=== PATIENT | female | born 1990 | race Caucasian/White ===

== ENCOUNTER 2018-06-22 07:27 | Outpatient (CLI) | payer OTHER ==
[2018-06-22] MEDS ORDERED: ISOVUE-370 76%-LOCM 1 ML ONE (11:10)
--- NOTE | 2018-06-22 11:38 | CT ---
CT OF PELVIS: DATE: 06/22/18. COMPARISON: None. HISTORY: Evaluate for lymphadenopathy, history of localized enlarged lymph nodes. TECHNIQUE: Serial axial CT imaging is obtained at 5 mm intervals through the pelvis with IV contrast. Coronal a nd sagittal reformatted imaging obtained. FINDINGS: There is a suggestion of mild levoscoliosis of the lumbar spine, a degree of which may be positional in nature. This is not well assessed on this exam. The imaged portions of the solid viscera are unr emarkable. The vascular structures appear patent. No significant free fluid is seen in the pelvis. Limited assessment of the bowel is unremarkable. No inguinal lymphadenopathy is noted. Benign subcentimeter bilateral inguinal lymph nodes are presen t. No pelvic adenopathy. No acute osseous abnormality. IMPRESSION: No pelvic lymphadenopathy noted. POS: [facility]
== END 2018-06-22 07:28 | disposition home or self-care (01) ==
LOC: BICCT 07:27
PROVIDERS: ATTEND Obstetrics & Gynecology
DX: R59.0 Localized enlarged lymph nodes (principal)
CPT/HCPCS: 72193